=== PATIENT | male | born 1990 | race Two or more races ===

== ENCOUNTER 2018-11-27 01:19 | Emergency (ER) | payer SELFPAY ==
[2018-11-27 01:27] VITALS: BP 124/87; PULSE 85; RESP 16; TEMP 97.8; O2SAT 97
[2018-11-27] MEDS ORDERED: Sodium Chloride 0.9% 1,000 ML IV STA (01:38)
--- NOTE | 2018-11-27 03:26 | ED PDOC ---
HPI: Psych/Substance Abuse Time Seen by Provider: 11/27/18 01:23 Chief Complaint (Nursing): Alcohol Ingestion Chief Complaint (Provider): Alcohol Ingestion ED Caveat: Intoxicated History Per: EMS History/Exam Limitations: intoxication Onset/Duration Of Symptoms: Unknown Current Symptoms Are (Timing): Still Present Suicide/Self Injury Attempted (Context): None Modifying Factor(s): Alcohol Additional Complaint(s): 28 y/o male brought in by EMS for public alcohol intoxication. Patient actively vomiting in the ED. No signs of trauma evident. History obtained from EMS. History from patient limited due to patient's intoxicated stated. PMD: none provided Past Medical History Reviewed: Historical Data, Nursing Documentation, Vital Signs Vital Signs: Last Vital Signs Temp 97.8 F 11/27/18 01:24 Pulse 85 11/27/18 01:24 Resp 16 11/27/18 01:24 BP 124/87 11/27/18 01:24 Pulse Ox 97 11/27/18 01:24 Primary Care Provider: FAMILY PROVIDER,NO - Medical History PMH: No Chronic Diseases - Surgical History Surgical History: No Surg Hx - Family History Family History: States: Unknown Family Hx - Social History Alcohol: > 2 Drinks/Day - Allergies Allergies/Adverse Reactions: Allergies Allergy/AdvReac Type Severity Reaction Status Date / Time No Known Allergies Allergy Verified 11/27/18 01:24 Review of Systems Review Of Systems: ROS cannot be obtained secondary to pt's inabilty to answer questions. Physical Exam - Reviewed Nursing Documentation Reviewed: Yes Vital Signs Reviewed: Yes - Physical Exam Appears: Positive for: No Acute Distress Head Exam: Positive for: ATRAUMATIC, NORMOCEPHALIC Skin: Positive for: Normal Color, Warm, Dry Eye Exam: Positive for: Normal appearance, EOMI, PERRL ENT: Positive for: Normal ENT Inspection Neck: Positive for: Normal, Painless ROM Cardiovascular/Chest: Positive for: Regular Rate, Rhythm. Negative for: Murmur Respiratory: Positive for: Normal Breath Sounds. Negative for: Respiratory Distress Gastrointestinal/Abdominal: Positive for: Normal Exam, Soft. Negative for: Tenderness Back: Positive for: Normal Inspection. Negative for: L CVA Tenderness, R CVA Tenderness, Vertebral Tenderness Extremity: Positive for: Normal ROM. Negative for: Deformity Neurological/Psych: Positive for: Awake, Alert, Gait (unsteady), Other (slurred speech, alcohol on breath). Negative for: Oriented, Motor/Sensory Deficits - ECG O2 Sat by Pulse Oximetry: 97 (RA) Pulse Ox Interpretation: Normal Medical Decision Making Medical Decision Making: Time: 137 A/P: 28 y/o male presenting with public alcohol intoxication. -- No signs of trauma noted on physical examination. -- Will monitor the patient for clinical sobriety. -- Alcohol Serum -- Sodium Chloride IV 1000 mls/hr -- Zofran Inj 4 mg IVP 400 --Improving, not as intoxicated but still unsteady gait 0645 --Awake, alert, steady gait, no longer vomiting --States he will take an uber home --Clinically sober and stable for discharge Scribe Attestation: Documented by Андрей Patel, acting as a scribe Caren Hernandez MD. Provider Scribe Attestation: All medical record entries made by the Scribe were at my direction and personally dictated by me. I have reviewed the chart and agree that the record accurately reflects my personal performance of the history, physical exam, medical decision making, and the department course for this patient. I have also personally directed, reviewed, and agree with the discharge instructions and disposition. Disposition - Clinical Impression Clinical Impression: Alcohol abuse - Patient ED Disposition Is Patient to be Admitted: No Counseled Patient/Family Regarding: Studies Performed, Diagnosis - Disposition Referrals: Alcoholics Anonymous [Outside] Disposition: Routine/Home Disposition Time: 07:00 Condition: IMPROVED Instructions: Alcohol Use - When Is Drinking a Problem? Forms: [employer] ([place])
== END 2018-11-27 07:25 | disposition home or self-care (01) ==
LOC: H.ER 01:19
DX: F10.129 Alcohol abuse with intoxication, unspecified (principal); R11.10 Vomiting, unspecified
CPT/HCPCS: 96361; 96374; 99283; G0480; J2405; J7030